=== PATIENT | male | born 1970 | race Caucasian/White ===

== ENCOUNTER → 2017-01-27 | Outpatient (CLI) | payer BC ==
--- NOTE | 2017-01-27 07:29 | MR ---
EXAMINATION TYPE: MR lumbar spine wo/w con DATE OF EXAM: 01/27/2017 7:19 AM COMPARISON: NONE HISTORY: Low back pain CONTRAST: The patient was injected with 15 mL intravenous MultiHance gadolinium contrast. Multiplanar, MultiSpin echo imaging of the lumbar spine was performed. L1-L2: Normal disc appearance without desiccation. No herniation, protrusion or disc bulging. No ca nal stenosis is present. Foramina are patent bilaterally. L2-L3: Normal disc appearance without desiccation. No herniation, protrusion or disc bulging. No ca nal stenosis is present. Foramina are patent bilaterally. L3-L4: Normal disc appearance without desiccation. No herniation, protrusion or disc bulging. No ca nal stenosis is present. Foramina are patent bilaterally. L4-L5: Normal disc appearance without desiccation. No herniation, protrusion or disc bulging. No ca nal stenosis is present. Foramina are patent bilaterally. L5-S1: Moderate disc desiccation is noted. Posterocentral disc herniation with effacement of the vent ral thecal sac. Probable intermittent left lateral recess stenosis. Lumbar segments are intact. No paraspinal masses are identified. Conus medullaris has a normal appe arance. No pathologic enhancement identified. IMPRESSION: 1. Disc desiccation. 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
== END | disposition home or self-care (01) ==
LOC: RADMRIMAIN 06:28
PROVIDERS: ATTEND Family Medicine
DX: M51.27 Other intervertebral disc displacement, lumbosacral region (principal)
CPT/HCPCS: 72158; A9577

== ENCOUNTER → 2017-08-13 | Outpatient (CLI) | payer BC ==
--- NOTE | 2017-08-14 10:04 | ECHOF ---
Referral Reason:R03.0 elevated blood pressure MEASUREMENTS -------- HEIGHT: 165.1 cm WEIGHT: 68.0 kg BP: 163/116 RVIDd: 2.2 cm (< 3.3) IVSd: 0.8 cm (0.6 - 1.1) LVIDd: 3.4 cm (3.9 - 5.3) LVPWd: 0.9 cm (0.6 - 1.1) IVSs: 1.3 cm LVIDs: 2.4 cm LVPWs: 1.3 cm LAESV Index (A-L): 8.13 ml/m Ao Diam: 2.8 cm (2.0 - 3.7) AV Cusp: 1.6 cm (1.5 - 2.6) LA Diam: 2.5 cm (2.7 - 3.8) MV EXCURSION: 18.612 mm (> 18.000) MV EF SLOPE: 151 mm/s (70 - 150) EPSS: 1.4 cm MV E Ernesto: 0.62 m/s MV DecT: 293 ms MV A Ernesto: 0.57 m/s MV E/A Ratio: 1.10 RAP: 5.00 mmHg RVSP: 12.14 mmHg FINDINGS -------- Resting tachycardia (HR>100bpm). This was a technically adequate study. The left ventricular size is normal. Left ventricular wall thickness is normal. Overall left vent ricular systolic function is normal with, an EF between 55 - 60 %. The right ventricle is normal in size and function. Normal LA size by volume 22+/-6 ml/m2. The right atrium is normal in size. The aortic valve is trileaflet, and appears structurally normal. No aortic stenosis or regurgitation. The mitral valve leaflets are mildly thickened. There is trace mitral regurgitation. Trace tricuspid regurgitation present. Right ventricular systolic pressure is normal at < 35 mmHg. There is no evidence of pulmonary hypertension. The pulmonic valve is normal. The aortic root size is normal. Normal inferior vena cava with normal inspiratory collapse consistent with estimated right atrial pre ssure of 5 mmHg. The pericardium is normal. There is no pericardial effusion. CONCLUSIONS -------- 1. Resting tachycardia (HR>100bpm). 2. This was a technically adequate study. 3. The left ventricular size is normal. 4. Left ventricular wall thickness is normal. 5. Overall left ventricular systolic function is normal with, an EF between 55 - 60 %. 6. Normal LA size by volume 22+/-6 ml/m2. 7. The aortic valve is trileaflet, and appears structurally normal. No aortic stenosis or regurgitati on. 8. The mitral valve leaflets are mildly thickened. 9. There is trace mitral regurgitation. 10. Trace tricuspid regurgitation present. 11. Right ventricular systolic pressure is normal at < 35 mmHg. 12. There is no evidence of pulmonary hypertension. 13. The aortic root size is normal. 14. There is no pericardial effusion. ZOOGLER: Carl Quiroga RDCS
== END | disposition home or self-care (01) ==
LOC: RADECHMAIN 14:43
PROVIDERS: ATTEND Family Medicine
DX: R03.0 Elevated blood-pressure reading, without diagnosis of hypertension (principal)
CPT/HCPCS: 93306

== ENCOUNTER 2019-03-16 02:25 | Emergency (ER) | payer BC ==
[2019-03-16 02:34] VITALS: TEMP 98.3
[2019-03-16] MEDS ORDERED: KETOROLAC 60 MG/2 ML VIAL IM STA (07:18)
[2019-03-16] MEDS ORDERED: ORPHENADRINE 30 MG/ML 2 ML VIAL IM STA (07:18)
--- NOTE | 2019-03-16 07:33 | ED ---
Extremity Problem HPI - General Chief complaint: Extremity Problem,Nontraumatic Stated complaint: Shoulder/Back/Arm pain Time Seen by Provider: 03/16/19 07:06 Source: patient, RN notes reviewed, old records reviewed Mode of arrival: ambulatory Limitations: no limitations - History of Present Illness Initial comments: Patient is a 48-year-old male presents emergency department today for evaluation of her left shoulder pain and arm tingling and numbness and inability for the past 2 months. Patient states that it seems to be worse with certain movements. Patient states he's also had shingles in that area many years ago. Patient states that it seems to get tingling and numbness when he lifts his arm above his head. Patient states that he has no specific neck pain. He denies any fall or trauma. - Related Data Home Medications Medication Instructions Recorded Confirmed Acetaminophen [Tylenol] 1,000 mg PO Q6H PRN 03/16/19 03/16/19 Previous Rx's Medication Instructions Recorded Ibuprofen [Motrin] 600 mg PO Q6HR PRN #20 tab 08/02/16 Cyclobenzaprine [Flexeril] 10 mg PO TID #15 tab 03/16/19 Dexamethasone 0.75 mg PO DAILY #12 tab 03/16/19 Ibuprofen 600 mg PO TID #20 tablet 03/16/19 traMADol HCl [Ultram] 50 mg PO Q6HR PRN 3 Days #12 tab 03/16/19 Allergies Allergy/AdvReac Type Severity Reaction Status Date / Time No Known Allergies Allergy Verified 03/16/19 07:35 Review of Systems ROS Statement: Those systems with pertinent positive or pertinent negative responses have been documented in the HPI. ROS Other: All systems not noted in ROS Statement are negative. Past Medical History Additional Past Medical History / Comment(s): nonalcoholic stetiohepatitis (TAI), prostatatis History of Any Multi-Drug Resistant Organisms: None Reported Past Surgical History: Appendectomy Additional Past Surgical History / Comment(s): cyst removed from tailbone Past Psychological History: No Psychological Hx Reported Smoking Status: Never smoker Past Alcohol Use History: None Reported Past Drug Use History: None Reported General Exam - General Exam Comments Initial Comments: This is a 48-year-old male. Alert and oriented. No distress. Limitations: no limitations General appearance: alert, in no apparent distress Head exam: Present: atraumatic, normocephalic, normal inspection Eye exam: Present: normal appearance, PERRL, EOMI. Absent: scleral icterus, conjunctival injection, periorbital swelling ENT exam: Present: normal exam, mucous membranes moist Neck exam: Present: normal inspection. Absent: tenderness, meningismus, lymphadenopathy Respiratory exam: Present: normal lung sounds bilaterally. Absent: respiratory distress, wheezes, rales, rhonchi, stridor Cardiovascular Exam: Present: regular rate, normal rhythm, normal heart sounds. Absent: systolic murmur, diastolic murmur, rubs, gallop, clicks GI/Abdominal exam: Present: soft, normal bowel sounds. Absent: distended, tenderness, guarding, rebound, rigid Extremities exam: Present: normal inspection, full ROM, normal capillary refill, other (Tenderness over the left infraspinatus muscle.). Absent: tenderness, pedal edema, joint swelling, calf tenderness Back exam: Present: normal inspection Neurological exam: Present: alert, oriented X3, CN II-XII intact Psychiatric exam: Present: normal affect, normal mood Course Vital Signs 03/16/19 03/16/19 02:31 07:44 Temperature 98.3 F Pulse Rate 93 82 Respiratory 18 16 Rate Blood Pressure 197/94 121/88 O2 Sat by Pulse 96 99 Oximetry Medical Decision Making - Medical Decision Making Patient is a 48-year-old male presents return today with left shoulder pain come to an Arm Intermittently for the past 2 Weeks and Months. Patient Has Significant Point Tenderness Really for Spinney This Is Possible. Patient X- Rays Are Was Much Is Evidence of Degenerative Disc Disease. Patient Norflex and Toradol. His Is Really No Symptoms Here Discussed with the Patient on Steroids to Help with Nerve Impingement and As Well As Muscle Relaxers Antibiotic and Her Medicine. Patient Was Given a Starter Pack for Topical Use Well. Discussed Close Follow-Up with PCP. Given a Note for Work. 03/16/19 07:35 EKG performed at 2:39 AM shows normal sinus rhythm normal EKG. Ventricular rate of 98 bpm. VT interval is 120 ms. QS duration 70 ms. QTc is 3:30/421 ms. - Radiology Data Radiology results: report reviewed Shoulder x-ray she stated to correlate for any history of acromioclavicular separation. Sclerosis present C4-C5 and C5 6 with associated disc height loss. Minimal anterolisthesis is of great 1 C4-C5. Thoracic scoliosis is suspected, C7 through T1 is now seen. Degenerative disc disease overall impression with thoracic scoliosis. Disposition Clinical Impression: DDD (degenerative disc disease), cervical, Arm paresthesia, left, Muscle spasm of left shoulder Disposition: HOME SELF-CARE Condition: Good Instructions (If sedation given, give patient instructions): Cervical Disc Herniation (ED) Additional Instructions: Patient has have close follow-up with your primary care physician can follow-up with field sales specialist as well. Patient should take the muscle accident 2 times her medicine as prescribed. Return to the emergency department if any alarming signs or symptoms occur. Monitor area for rash for concern for shingles. Prescriptions: Dexamethasone 0.75 mg PO DAILY #12 tab Cyclobenzaprine [Flexeril] 10 mg PO TID #15 tab Ibuprofen 600 mg PO TID #20 tablet traMADol HCl [Ultram] 50 mg PO Q6HR PRN 3 Days #12 tab PRN Reason: Pain Is patient prescribed a controlled substance at d/c from ED?: Yes When asked, does pt state using other controlled substances?: No If prescribed controlled substance>3 days was MAPS reviewed?: Prescribed <3 Days If opioid is for acute pain is fill amount 7 days or less?: Yes If Rx opioid, was Start Talking consent form obtained?: Yes Referrals: Phill Ford MD [Primary Care Provider] - 1-2 days Time of Disposition: 08:24
[2019-03-16 07:46] VITALS: RESP 16
--- NOTE | 2019-03-16 08:06 | XR ---
Left shoulder HISTORY: Pain 3 views of the left shoulder Slight superior displacement of the distal clavicle in relation to the acromion is noted. Left lung a pex as visualized is normal. There is no fracture. Bone mineralization is maintained. IMPRESSION: Correlate for any history of acromioclavicular separation.
--- NOTE | 2019-03-16 08:07 | XR ---
Cervical spine Limited HISTORY: Pain 4 views of the cervical spine There is spondylosis present at C4-5 and C5-6 with associated loss of disc height. Minimal anterolist hesis grade 1 C4-5. Bone mineralization somewhat reduced. Vertebral body height is maintained. Thorac ic scoliosis is suspected. C7-T1 is not well seen. IMPRESSION: Degenerative disc disease, thoracic scoliosis.
[2019-03-16] MEDS ORDERED: ACET/COD 300 MG/30 MG STARTER PACK 6 TAB BTL PO STA (08:22)
[2019-03-16] MEDS ORDERED: CYCLOBENZAPRINE 10MG STARTER 3 TAB BTL PO STA (08:22)
[2019-03-16 09:00] VITALS: BP 136/82; PULSE 89
== END 2019-03-16 09:08 | disposition home or self-care (01) ==
LOC: EC 02:25
DX: M50.30 Other cervical disc degeneration, unspecified cervical region (principal); M62.838 Other muscle spasm; R20.2 Paresthesia of skin
CPT/HCPCS: 93005; 72040; 73030; 99284; 96372 ×2; J2360; J1885

== ENCOUNTER 2021-03-07 10:38 | Observation (INO) | payer BC ==
[2021-03-07 11:37] LABS: Basophils # (A) 0.1 k/uL (0-0.2); Basophils % (A) 1 %; Eosinophils # (A) 0.1 k/uL (0-0.7); Eosinophils % (A) 1 %; HCT 48.8 % (39.0-53.0); HGB 16.5 gm/dL (13.0-17.5); Lymphocytes # (A) 1.6 k/uL (1.0-4.8); Lymphocytes % (A) 26 %; MCH 30.8 pg (25.0-35.0); MCHC 33.9 g/dL (31.0-37.0); Mean Platelet Volume 7.2; Monocytes # (A) 0.3 k/uL (0-1.0); Monocytes % (A) 5 %; Neutrophils % (A) 64 %; Platelet Count 287 k/uL (150-450); RBC 5.37 m/uL (4.30-5.90); RDW 13.1 % (11.5-15.5); WBC 6.2 k/uL (3.8-10.6)
[2021-03-07 11:47] LABS: D-Dimer <0.17 mg/L FEU (<0.60); Partial Thromboplastin Time 24.9 sec (22.0-30.0); Prothrombin Time 10.3 sec (9.0-12.0)
--- NOTE | 2021-03-07 11:48 | XR ---
EXAMINATION TYPE: XR chest 2V DATE OF EXAM: 03/07/2021 COMPARISON: NONE TECHNIQUE: PA and lateral views submitted. HISTORY: Chest pain FINDINGS: The lungs are clear and there is no pneumothorax, pleural effusion, or focal pneumonia. Mild hypere xpansion can be associated with asthma or COPD. Correlate clinically. IMPRESSION: 1. No acute process.
[2021-03-07 11:54] LABS: ALT 55 U/L (4-49); AST 35 U/L (17-59); African American GFR (CKD) >90 (>60 ml/min/1.73 sqM); Albumin 4.3 g/dL (3.5-5.0); Alkaline Phosphatase 76 U/L (38-126); Anion Gap 7 mmol/L; Blood Urea Nitrogen 18 mg/dL (9-20); Calcium 9.3 mg/dL (8.4-10.2); Carbon Dioxide 26 mmol/L (22-30); Chloride 107 mmol/L (98-107); Creatine Kinase 97 U/L (55-170); Glucose 103 mg/dL (74-99); Lipase 61 U/L (23-300); Non-African American GFR(CKD) 79 (>60 ml/min/1.73 sqM); Potassium 4.6 mmol/L (3.5-5.1); Sodium 140 mmol/L (137-145); Total Bilirubin 2.6 mg/dL (0.2-1.3); Total Protein 7.3 g/dL (6.3-8.2)
--- NOTE | 2021-03-07 12:23 | ED ---
Chest Pain HPI - General Chief Complaint: Chest Pain Stated Complaint: chest pain Time Seen by Provider: 03/07/21 11:01 Source: patient, RN notes reviewed Mode of arrival: ambulatory Limitations: no limitations - History of Present Illness Initial Comments: This is a 50-year-old male with a benign history for cardiac disease who in early December had COVID-19 and his in recovery at this time who was sent over from his doctor's office with complaints of intermittent episodes of chest pain. The chest pain is been on-and-off dull achy in nature 2-3/10 severity is been over last couple days. Currently no pain no shortness breath no fevers chills nausea vomiting. He states he still has some fatigue residual from the COVID-19 there is no family history of heart disease at his age he is a nonsmoker. No other current complaints or modifying factors nothing seems to precipitate the pain nothing makes it better MD Complaint: chest pain - Related Data Home Medications Medication Instructions Recorded Confirmed Ibuprofen [Motrin] 600 mg PO Q6HR PRN 03/07/21 03/07/21 Allergies Allergy/AdvReac Type Severity Reaction Status Date / Time No Known Allergies Allergy Verified 03/07/21 11:38 Review of Systems ROS Statement: Those systems with pertinent positive or pertinent negative responses have been documented in the HPI. ROS Other: All systems not noted in ROS Statement are negative. EKG Findings - EKG Results: EKG: interpreted by ERMD, sinus rhythm, normal axis, normal QRS, normal ST/T, no acute changes (Neuro sinus rhythm 80. Interval 138 QRS duration 70 QT since QTC 350/[address]-T wave changes this does correlate with the one seen in the office) Past Medical History Additional Past Medical History / Comment(s): nonalcoholic stetiohepatitis (TAI), prostatatis History of Any Multi-Drug Resistant Organisms: None Reported Past Surgical History: Appendectomy Additional Past Surgical History / Comment(s): cyst removed from tailbone Past Psychological History: No Psychological Hx Reported Smoking Status: Never smoker Past Alcohol Use History: None Reported Past Drug Use History: None Reported General Exam - General Exam Comments Initial Comments: This is a well-developed well-nourished awake alert oriented 3 male Limitations: no limitations General appearance: alert, in no apparent distress Head exam: Present: atraumatic, normocephalic, normal inspection Eye exam: Present: normal appearance, PERRL, EOMI. Absent: scleral icterus, conjunctival injection, periorbital swelling ENT exam: Present: normal exam, mucous membranes moist Neck exam: Present: normal inspection, full ROM, other (No stridor JVD or bruits). Absent: tenderness, meningismus, lymphadenopathy Respiratory exam: Present: normal lung sounds bilaterally. Absent: respiratory distress, wheezes, rales, rhonchi, stridor, chest wall tenderness Cardiovascular Exam: Present: regular rate, normal rhythm, normal heart sounds. Absent: systolic murmur, diastolic murmur, rubs, gallop, clicks GI/Abdominal exam: Present: soft, normal bowel sounds. Absent: distended, tenderness, guarding, rebound, rigid Extremities exam: Present: normal inspection, full ROM, normal capillary refill. Absent: tenderness, pedal edema, joint swelling, calf tenderness Back exam: Present: normal inspection Neurological exam: Present: alert, oriented X3, CN II-XII intact Psychiatric exam: Present: normal affect, normal mood Skin exam: Present: warm, dry, intact, normal color. Absent: rash Course Vital Signs 03/07/21 03/07/21 03/07/21 10:39 11:19 11:21 Temperature 97.5 F L Pulse Rate 90 78 Pulse Rate [ 78 Community Artist ] Respiratory 18 18 Rate Blood Pressure 141/86 131/111 O2 Sat by Pulse 96 94 L Oximetry 03/07/21 12:00 Temperature Pulse Rate 96 Pulse Rate [ Community Artist ] Respiratory 18 Rate Blood Pressure 124/85 O2 Sat by Pulse 97 Oximetry Chest Pain MDM - MDM Image reviewed no acute findings I did discuss the findings with the patient's provider patient will be admitted with cardiology consultation Disposition Clinical Impression: Atypical chest pain Disposition: ADMITTED IP TO THIS [facility] Condition: Fair Referrals: Phill Ford MD [Primary Care Provider] - 1-2 days
[2021-03-07] MEDS ORDERED: NITROGLYCERIN SL TABS 0.4 MG TAB SUBLINGUAL PRN (14:02)
[2021-03-07] MEDS ORDERED: SODIUM CHLORIDE 0.9% 1,000 ML IV SCH (14:15)
[2021-03-07] MEDS ORDERED: LACTATED RINGERS 1,000 ML IV SCH (18:15)
[2021-03-07 18:23] VITALS: RESP 16
[2021-03-08] MEDS ORDERED: ASPIRIN 325 MG TAB PO SCH (09:00)
--- NOTE | 2021-03-08 10:13 | P.CRDCN ---
History of Present Illness History of present illness: HISTORY OF PRESENTING ILLNESS This is a pleasant 50-year-old male with no significant past medical history. We have been asked to see in consultation for chest pain. He states for the previous 2 days he has been experiencing a full sensation in his body. He states it feels like he can feel his blood pulsing through his veins. He then developed yesterday a discomfort in the midsternal region described as a pressure sensation. There was some radiation down both arms at times. He denied associated shortness of breath, dizziness, palpitations, nausea, vomiting or diaphoresis. He did have one episode where he stood up too fast and felt mildly lightheaded. He states he did have a COVID-19 diagnosis in early December of this year and since that time he has been fatigued and has not gone back to his regular routine of daily exercise. He saw his PCP yesterday and was sent to the hospital for further evaluation. DIAGNOSTICS EKG reveals sinus mechanism heart rate of [address] or T wave abnormalities noted. Telemetry tracings indicate sinus mechanism. Chest xray for an acute cardiopulmonary process. Laboratory reviewed, CBC unremarkable d-dimer less than 0.17, sodium 140, potassium 4.6, creatinine 1.1, magnesium 2.0, cardiac enzymes negative 3. He takes no daily cardiac medications. He underwent an echocardiogram in 2017 revealing preserved LV systolic function with ejection fraction 55-60%. REVIEW OF SYSTEMS At the time of my exam: CONSTITUTIONAL: Denies fever or chills. CARDIOVASCULAR: Denies chest pain, shortness of breath, orthopnea, PND or pal pitations. RESPIRATORY: Denies cough. GASTROINTESTINAL: Denies abdominal pain, diarrhea, constipation, nausea or vomiting. MUSCULOSKELETAL: Denies myalgias. NEUROLOGIC: Denies numbness, tingling, headacbe or weakness. ENDOCRINE: Denies fatigue, weight change, polydipsia or polyurina. GENITOURINARY: Denies burning, hematuria or urgency with micturation. HEMATOLOGIC: Denies history of anemia or bleeding. PHYSICAL EXAMINATION Blood pressure 108/73 heart rate 75 afebrile and maintaining oxygen saturation on room air. CONSTITUTIONAL: No apparent distress. HEENT: Head is normocephalic. Pupils are equal, round. Sclerae anicteric. Mucous membranes of the mouth are moist. No JVD. No carotid bruit. CHEST EXAMINATION: Lungs are clear to auscultation. No chest wall tenderness is noted on palpation or with deep breathing. HEART EXAMINATION: Regular rate and rhythm. S1, S2 heard. No murmurs, gallops or rub. ABDOMEN: Soft, nontender. Positive bowel sounds. EXTREMITIES: 2+ peripheral pulses, no lower extremity edema and no calf tenderness. NEUROLOGIC EXAMINATION: Patient is awake, alert and oriented x3. ASSESSMENT Chest pain, atypical PLAN An acute coronary event has been ruled out. Pain is atypical to be related to angina. Obtain 2-D echocardiogram and Doppler study to assess cardiac structure and function. Perform exercise stress test to assess for stress-induced cardiac ischemia. Thank you kindly for this consultation. Nurse Practitioner note has been reviewed, I agree with a documented findings and plan of care. Patient was seen and examined. Past Medical History Past Medical History: Liver Disease Additional Past Medical History / Comment(s): 12/2020 covid 19 infection/pt states still has fatigue, prostatitis, fatty liver, scoliosis upper back which causes occasional neck and L arm pain d/t nerve being pinched, chronic low back pain. History of Any Multi-Drug Resistant Organisms: None Reported Past Surgical History: Appendectomy Additional Past Surgical History / Comment(s): Pilonidal cyst removed from tailbone. Past Anesthesia/Blood Transfusion Reactions: No Reported Reaction Additional Past Anesthesia/Blood Transfusion Reaction / Comment(s): Pt has clausterphobia Smoking Status: Never smoker - Past Family History Father Family Medical History: Cancer, Renal Disease Additional Family Medical History / Comment(s): Father has hemodialysis and had bladder cancer. Father is 89yrs old. Mother Family Medical History: Dementia Additional Family Medical History / Comment(s): Balance issues. Mother is 85 yr s old. Medications and Allergies Home Medications Medication Instructions Recorded Confirmed Type Ibuprofen [Motrin] 600 mg PO Q6HR PRN 03/07/21 03/07/21 History Allergies Allergy/AdvReac Type Severity Reaction Status Date / Time No Known Allergies Allergy Verified 03/07/21 11:38 Physical Exam Vitals: Vital Signs Temp Pulse Pulse Pulse Resp BP BP 03/08/21 07:00 97.4 F L 75 16 03/08/21 02:00 97.7 F 70 16 03/07/21 19:49 98.3 F 79 16 03/07/21 19:05 79 03/07/21 18:11 98.2 F 87 16 122/81 03/07/21 18:01 98.2 F 76 18 132/78 03/07/21 17:36 94 18 111/74 03/07/21 15:00 75 18 111/74 03/07/21 14:00 88 18 106/66 03/07/21 13:00 89 18 108/67 03/07/21 12:00 96 18 124/85 03/07/21 11:21 78 03/07/21 11:19 78 18 131/111 03/07/21 10:39 97.5 F L 90 18 141/86 BP BP BP Pulse Ox 03/08/21 07:00 108/73 96 03/08/21 02:00 106/70 96 03/07/21 19:49 113/75 123/82 118/56 96 03/07/21 19:05 03/07/21 18:11 97 03/07/21 18:01 99 03/07/21 17:36 95 03/07/21 15:00 98 03/07/21 14:00 97 03/07/21 13:00 96 03/07/21 12:00 97 03/07/21 11:21 03/07/21 11:19 94 L 03/07/21 10:39 96 Intake and Output 03/07/21 03/08/21 03/08/21 22:59 06:59 14:59 Other: # Voids 2 2 Weight 74.389 kg Results 03/07/21 11:18 03/07/21 11:18 Cardiac Enzymes 03/07/21 03/07/21 03/07/21 Range/Units 11:18 11:18 14:47 AST 35 (17-59) U/L Troponin I <0.012 <0.012 (0.000-0.034) ng/mL 03/07/21 Range/Units 17:10 AST (17-59) U/L Troponin I <0.012 (0.000-0.034) ng/mL Coagulation 03/07/21 Range/Units 11:18 PT 10.3 (9.0-12.0) sec APTT 24.9 (22.0-30.0) sec CBC 03/07/21 Range/Units 11:18 WBC 6.2 (3.8-10.6) k/uL RBC 5.37 (4.30-5.90) m/uL Hgb 16.5 (13.0-17.5) gm/dL Hct 48.8 (39.0-53.0) % Plt Count 287 (150-450) k/uL Comprehensive Metabolic Panel 03/07/21 Range/Units 11:18 Sodium 140 (137-145) mmol/L Potassium 4.6 (3.5-5.1) mmol/L Chloride 107 (98-107) mmol/L Carbon Dioxide 26 (22-30) mmol/L BUN 18 (9-20) mg/dL Creatinine 1.10 (0.66-1.25) mg/dL Glucose 103 H (74-99) mg/dL Calcium 9.3 (8.4-10.2) mg/dL AST 35 (17-59) U/L ALT 55 H (4-49) U/L Alkaline Phosphatase 76 (38-126) U/L Total Protein 7.3 (6.3-8.2) g/dL Albumin 4.3 (3.5-5.0) g/dL Current Medications Generic Name Dose Route Start Last Admin Trade Name Freq PRN Reason Stop Dose Admin Aspirin 325 mg 03/08/21 09:00 Aspirin 325 Mg Tab PO DAILY LB Lactated Ringer's 1,000 mls @ 75 mls/hr 03/07/21 18:15 03/07/21 19:06 Lactated Ringers IV 75 mls/hr .[id number] LB Administration Nitroglycerin 0.4 mg 03/07/21 14:02 Nitroglycerin Sl Tabs 0.4 Mg Tab SUBLINGUAL Q5M PRN Chest Pain Intake and Output 03/07/21 03/08/21 03/08/21 22:59 06:59 14:59 Other: # Voids 2 2 Weight 74.389 kg 03/07/21 11:18 03/07/21 11:18
--- NOTE | 2021-03-08 11:40 | ECHOF ---
Referral Reason:cp MEASUREMENTS -------- HEIGHT: 165.1 cm WEIGHT: 74.4 kg BP: RVIDd: 1.7 cm (< 3.3) IVSd: 0.7 cm (0.6 - 1.1) LVIDd: 3.8 cm (3.9 - 5.3) LVPWd: 0.8 cm (0.6 - 1.1) IVSs: 1.2 cm LVIDs: 2.4 cm LVPWs: 1.2 cm LAESV Index (A-L): 9.31 ml/m Ao Diam: 2.7 cm (2.0 - 3.7) AV Cusp: 1.9 cm (1.5 - 2.6) LA Diam: 3.0 cm (2.7 - 3.8) MV EXCURSION: 22.473 mm (> 18.000) MV EF SLOPE: 281 mm/s (70 - 150) EPSS: 1.4 cm MV E Ernesto: 0.83 m/s MV DecT: 239 ms MV A Ernesto: 0.48 m/s MV E/A Ratio: 1.74 RAP: 5.00 mmHg RVSP: 9.13 mmHg FINDINGS -------- This was a technically good study. The left ventricular size is normal. Left ventricular wall thickness is normal. Overall left vent ricular systolic function is normal with, an EF between 55 - 60 %. The diastolic filling pattern is normal for the age of the patient 7.73. The right ventricle is normal in size. The left atrial size is normal. Normal LA size by volume 22+/-6 ml/m2. The right atrial size is normal. Interatrial and interventricular septum intact. The aortic valve is trileaflet and appears structurally normal. The mitral valve is normal. There is trace mitral regurgitation. The tricuspid valve appears structurally normal. Trace tricuspid regurgitation present. Right heide tricular systolic pressure is normal at < 35 mmHg. There is no pulmonic regurgitation present. The aortic root size is normal. Normal inferior vena cava with normal inspiratory collapse consistent with estimated right atrial pre ssure of 5 mmHg. There is no pericardial effusion. CONCLUSIONS -------- 1. The left ventricular size is normal. 2. Left ventricular wall thickness is normal. 3. Overall left ventricular systolic function is normal with, an EF between 55 - 60 %. 4. The diastolic filling pattern is normal for the age of the patient 7.73 5. There is trace mitral regurgitation. 6. Trace tricuspid regurgitation present. 7. There is no pericardial effusion. CHICLE GRINDER FEEDER: Melissa Perez RDCS
[2021-03-08 11:49] LABS: Basophils # (A) 0.04 X 10*3/uL (0.00-0.10); Basophils % (A) 0.6 %; Eosinophils # (A) 0.13 X 10*3/uL (0.04-0.35); HCT 44.8 % (39.6-50.0); HGB 15.1 g/dL (13.0-17.0); Lymphocytes # (A) 1.71 X 10*3/uL (0.90-5.00); Lymphocytes % (A) 26.7 %; MCH 31.2 pg (27.0-32.0); MCHC 33.7 g/dL (32.0-37.0); MCV 92.6 fL (80.0-97.0); Mean Platelet Volume 10.1 fL (9.5-12.2); Monocytes # (A) 0.53 X 10*3/uL (0.20-1.00); Monocytes % (A) 8.3 %; Neutrophils # (A) 3.98 X 10*3/uL (1.80-7.70); Neutrophils % (A) 62.2 %; Platelet Count 278 X 10*3/uL (140-440); RBC 4.84 X 10*6/uL (4.40-5.60); RDW 12.3 % (11.5-14.5)
[2021-03-08 14:48] LABS: African American GFR (CKD) 81.8 (60.0-200.0); Albumin 3.9 g/dL (3.80-4.90); Albumin/Globulin Ratio 1.7 (1.60-3.17); Anion Gap 6.6 mmol/L (4.00-12.00); BUN/Creat Ratio 14.17 Ratio (12.00-20.00); Calcium 9.5 mg/dL (8.7-10.3); Carbon Dioxide 26.4 mmol/L (21.6-31.8); Chol/HDL Ratio 6.36; Globulin 2.3 g/dL (1.6-3.3); LDL Cholesterol,Calculated 141.4 mg/dL (0.0-131.0); Magnesium 1.8 mg/dL (1.5-2.4); Non-African American GFR(CKD) 70.6 (60.0-200.0); Potassium 4.1 mmol/L (3.5-5.5); Total Bilirubin 3.9 mg/dL (0.2-1.2); Total Protein 6.2 g/dL (6.2-8.2); VLDL Calculation 35.6 mg/dL (5.00-40.00)
[2021-03-08 15:15] VITALS: BP 114/73; PULSE 85; TEMP 97.3
--- NOTE | 2021-03-08 15:28 | EST ---
EXERCISE STRESS AGE: 50 SEX: M HT: 5'5" WT: 164lbs PROTOCOL: Lloyd STAGE: III DURATION OF EXERCISE: 7:00 HEART RATE REST: 95 BLOOD PRESSURE REST: 147/81 MAXIMUM HEART RATE ACHIEVED: 170 MAXIMUM BLOOD PRESSURE: 210/71 85% MPHR: 145 100% MPHR: 171 METS: 8.5 INDICATIONS: Chest pain. STRESS DATA: Heart rate is 95, pressure is 147/81 mmHg. Baseline EKG showed sinus mechanism. The patient exercised on the treadmill according to Lloyd protocol for a total of 7 minutes and achieved 8 of METS. Max heart rate was 170, which is about 100% of maximum predicted heart rate and maximum blood pressure was 210/71 mmHg. Clinically, the patient did not have any symptoms of chest pain or chest discomfort and the EKG did not show any significant ST or T-wave abnormalities concerning for ischemia. CONCLUSION: 1. Good exercise tolerance. 2. Normal EKG in response to exercise. MMODL / IJN: [id number] /
--- NOTE | 2021-03-08 17:27 | P.HPIM ---
History of Present Illness H&P Date: 03/08/21 Chief Complaint: Chest discomfort 50-year-old male was admitted to the hospital with intermittent complaints of chest discomfort with associated dizziness for 4 day duration. Patient was sent from office on 03/07/2021 for further diagnostic workup of chest discomfort and associated dizziness. No acute changes and 12 EKG, troponins negative 3. Patient does not have any significant history. Consult to cardiology for recommendations and treatment plan regarding chest discomfort Review of Systems Constitutional: Reports as per HPI Ears, nose, mouth and throat: Reports as per HPI Cardiovascular: Reports chest pain Neurological: Reports numbness (Dizziness) Past Medical History Past Medical History: Liver Disease Additional Past Medical History / Comment(s): 12/2020 covid 19 infection/pt states still has fatigue, prostatitis, fatty liver, scoliosis upper back which causes occasional neck and L arm pain d/t nerve being pinched, chronic low back pain. History of Any Multi-Drug Resistant Organisms: None Reported Past Surgical History: Appendectomy Additional Past Surgical History / Comment(s): Pilonidal cyst removed [facility]. Past Anesthesia/Blood Transfusion Reactions: No Reported Reaction Additional Past Anesthesia/Blood Transfusion Reaction / Comment(s): Pt has clausterphobia Smoking Status: Never smoker - Past Family History Father Family Medical History: Cancer, Renal Disease Additional Family Medical History / Comment(s): Father has hemodialysis and had bladder cancer. Father is 89yrs old. Mother Family Medical History: Dementia Additional Family Medical History / Comment(s): Balance issues. Mother is 85 yrs old. Medications and Allergies Home Medications and Allergies Comment(s): Medications and ALLERGIES reviewed Home Medications Medication Instructions Recorded Confirmed Type Ibuprofen [Motrin] 600 mg PO Q6HR PRN 03/07/21 03/07/21 History Allergies Allergy/AdvReac Type Severity Reaction Status Date / Time No Known Allergies Allergy Verified 03/07/21 11:38 Physical Exam Vitals: Vital Signs Temp Pulse Pulse Pulse Resp BP BP 03/08/21 16:14 03/08/21 15:00 97.3 F L 85 16 03/08/21 07:00 97.4 F L 75 16 03/08/21 02:00 97.7 F 70 16 03/07/21 19:49 98.3 F 79 16 03/07/21 19:05 79 03/07/21 18:11 98.2 F 87 16 122/81 03/07/21 18:01 98.2 F 76 18 132/78 03/07/21 17:36 94 18 111/74 BP BP BP Pulse Ox 03/08/21 16:14 96 03/08/21 15:00 114/73 95 03/08/21 07:00 108/73 96 03/08/21 02:00 106/70 96 03/07/21 19:49 113/75 123/82 118/56 96 03/07/21 19:05 03/07/21 18:11 97 03/07/21 18:01 99 03/07/21 17:36 95 Intake and Output 03/08/21 03/08/21 03/08/21 06:59 14:59 22:59 Intake Total 836 Balance 836 Intake: IV 600 Lactated Ringers 1,000 ml 600 @ 75 mls/hr IV .[id number] BL Rx#:[id number] Oral 236 Other: # Voids 2 2 Weight 74.39 kg - Constitutional General appearance: cooperative - EENT Eyes: EOMI, PERRLA Ears: bilateral: normal - Neck Neck: normal ROM Carotids: bilateral: upstroke normal Thyroid: bilateral: normal size - Respiratory Respiratory: bilateral: CTA (Anterior and posterior lung gomez) - Cardiovascular Normal sinus rhythm Heart rate: 74 Rhythm: regular Heart sounds: normal: S1, S2 radial pulse Peripheral Pulses: bilateral: Normal dorsalis pedis Peripheral Pulses: bilateral: Normal - Gastrointestinal General gastrointestinal: normal bowel sounds - Integumentary Integumentary: normal - Musculoskeletal Musculoskeletal: gait normal - Psychiatric Psychiatric: A&O x's 3, appropriate affect, intact judgment & insight Results CBC & Chem 7: 03/08/21 07:25 03/08/21 07:25 Labs: Abnormal Lab Results - Last 24 Hours (Table) 03/08/21 Range/Units 07:25 Total Bilirubin 3.9 H (0.2-1.2) mg/dL ALT 52 H (10-49) U/L Triglycerides 178.0 H (0.0-149.0) mg/dL Cholesterol 210 H (0-200) mg/dL LDL Cholesterol, Calc 141.4 H (0.0-131.0) mg/dL HDL Cholesterol 33.0 L (40.0-60.0) mg/dL Chest x-ray: report reviewed Thrombosis Risk Factor Assmnt - Choose All That Apply Any of the Below Risk Factors Present?: Yes Each Factor Represents 1 point: Age 41-60 years, Obesity (BMI >25) Other Risk Factors: No Other congenital or acquired thrombophilia - If yes, enter type in comment: No Thrombosis Risk Factor Assessment Total Risk Factor Score: 2 Thrombosis Risk Factor Assessment Level: Low Risk Assessment and Plan Assessment: Chest discomfort Dizziness History of Roa History of prostatitis Full code Plan: Chest discomfort, troponins negative 3, 12-lead EKG no acute changes, awaiting recommendations and treatment plan from cardiology Dizziness, IV hydration orthostatic blood pressures Paresthesia, IV hydration and monitor electrolytes Awaiting for echo and stress tests Monitor diagnostic testing and labs Further recommendations to come based on patient's clinical condition Time with Patient: Greater than 30
--- NOTE | 2021-03-08 17:31 | P.DS ---
Providers Date of admission: 03/07/21 14:02 Expected date of discharge: 03/08/21 Attending physician: Phill Ford Consults: 03/07/21 14:02 Consult Physician Urgent Consulting Provider: Henrik Abernathy Consult Reason/Comments: Atypical chest pain Do you want consulting provider notified?: Yes Primary care physician: Phill Ford Hospital Course: 50-year-old male was admitted to the hospital with chest discomfort with associated dizziness, and paresthesia for 4 day duration. Patient received IV hydration for dizziness resolved. Chest discomfort was evaluated with troponins and stress test and echo normal per cardiology. Patient noted to have elevated bilirubin from 2.6-3.9 during admission will follow-up with primary care for further investigation Assessment: Chest discomfort Dizziness Paresthesia History of Roa History of prostatitis Full code Health Concerns: None noted Pertinent Studies: Chest x-ray no acute cardiopulmonary changes Stress tests, no ischemia noted no abnormalities noted Echocardiogram, normal ejection fraction no acute changes Procedures: None performed Patient Condition at Discharge: Fair Plan - Discharge Summary Discharge Rx Participant: No New Discharge Prescriptions: Continue Ibuprofen [Motrin] 600 mg PO Q6HR PRN PRN Reason: Pain Discharge Medication List Ibuprofen [Motrin] 600 mg PO Q6HR PRN 03/07/21 [History] Follow up Appointment(s)/Referral(s): Phill Ford MD [Primary Care Provider] - 1-2 days Carlos Wagner MD [STAFF PHYSICIAN] - 2 Weeks Patient Instructions/Handouts: Chest Pain (DC) Discharge Disposition: HOME SELF-CARE
== END 2021-03-08 17:15 | disposition home or self-care (01) ==
LOC: EC 10:38 → 6NMEDSUR 14:02
PROVIDERS: ADMIT Family Medicine; ATTEND Family Medicine
DX: R07.89 Other chest pain (principal); R42 Dizziness and giddiness; R20.2 Paresthesia of skin; R53.83 Other fatigue; N41.9 Inflammatory disease of prostate, unspecified; Z20.822 Contact with and (suspected) exposure to COVID-19; Z86.16 Personal history of COVID-19; K76.0 Fatty (change of) liver, not elsewhere classified; M41.9 Scoliosis, unspecified; G89.29 Other chronic pain; M54.9 Dorsalgia, unspecified; Z90.49 Acquired absence of other specified parts of digestive tract; Z87.2 Personal history of diseases of the skin and subcutaneous tissue; Z80.52 Family history of malignant neoplasm of bladder; Z81.8 Family history of other mental and behavioral disorders
CPT/HCPCS: 99285; 36415; 94760; 93005; 93017; 93306; 85379; 80061; 80053 ×2; 82550; 83690; 83735 ×2; 84484; 85025 ×2; 85610; 85730; 87635; 71046; G0378 ×2

== ENCOUNTER → 2022-12-13 | Outpatient (CLI) | payer BC ==
--- NOTE | 2022-12-13 11:22 | CA ---
Stress Echo Report Juan Olivas Age: 52 Gender: M : 1970 Exam Date: 12/13/2022 10:11 Exam Location: [facility] Ht (in): 65 Wt (lb): 160 Ordering Physician: Phill Ford MD Referring Physician: Logan MALDONADO Heater Operator Helper: Simona Nguyen RDCS Technologist Procedure CPT: Indication: R07.89 ICD-9 Codes: Rhythm: Patient History: Cardiac Medications: Medications in past 24 hours: Contrast: Stress Results Protocol: Lloyd Total dose(mL): Exercise Duration (min:sec): Max ST Depression (mm): Angina Score: Irene Score: METS: 10.3 Resting HR: 114 Resting BP: 146 / 52 Peak HR: 171 Peak BP: 204 / 77 Max Predicted HR: 169 101 % Max Predicted HR Target HR: 144 Double Product: [id number] Stress Summary: BP Response: Reason for Termination: Reached target heart rate Cardiac Symptoms: ECG Analysis Resting ECG: Stress ECG: Arrhythmia: Echo Analysis Resting Echo: Peak Echo Analysis: MEASUREMENTS (Male/Female) Normal Values CONCLUSIONS Excellent exercise tolerance Normal EKG and echo in response to exercise Dr. Carlos Wagner MD (Electronically Signed) Final Date: 13 December 2022 11:21
== END | disposition home or self-care (01) ==
LOC: RADNMMAIN 09:48
PROVIDERS: ATTEND Family Medicine
DX: R07.89 Other chest pain (principal)
CPT/HCPCS: 93351

== ENCOUNTER → 2024-10-01 | Outpatient (CLI) | payer BC ==
--- NOTE | 2024-10-01 21:28 | US ---
EXAMINATION TYPE: US kidneys/renal and bladder DATE OF EXAM: 10/01/2024 COMPARISON: NONE CLINICAL INDICATION: Male, 53 years old with history of R10.9 ABDOMINAL PAIN; left flank pain TECHNIQUE: Grayscale imaging of the bilateral kidneys and urinary bladder: FINDINGS: EXAM MEASUREMENTS: Right Kidney: 10.7x5.2x5.1 cm Left Kidney: 10.4x6.0x5.6 cm Right Kidney: wnl, no evidence for hydronephrosis, mass or renal calculus. Left Kidney: wnl, no evidence for hydronephrosis, mass or renal calculus. Bladder: wnl Bilateral Jets seen: Yes There is no evidence for hydronephrosis at this point in time. No nephrolithiasis is seen. No veronica s are identified. The urinary bladder is adequately distended. IMPRESSION: Unremarkable study. [facility] Lefty Richardson, , 10/01/2024 9:25 PM
== END | disposition home or self-care (01) ==
LOC: RADUSWWP 13:10
PROVIDERS: ATTEND Family Medicine
DX: R10.9 Unspecified abdominal pain (principal)
CPT/HCPCS: 76770